=== PATIENT | female | born 1995 ===

== ENCOUNTER 2024-02-11 08:55 | Inpatient (IN) | payer BC, OTHER ==
[~2024-02-11] VITALS: Ht 162.6 cm; Wt 108.9 kg
[2024-02-11 09:53] LABS: HEMOGLOBIN 13.7 g/dL (12.0-18.0); MCH 29.1 (27-36); MCHC 33.3 g/dl (30-36); MCV 87.5 fl (81-99); RBC 4.69 M/ul (4.3-5.7); RDW 13.9 (10.5-15.0)
[2024-02-11] MEDS ORDERED: LACTATED RINGER'S 1,000 ML IV PRN (10:00)
[2024-02-11] MEDS ORDERED: CALCIUM CARBONATE 500 MG CHEW PO PRN (10:00)
[2024-02-11] MEDS ORDERED: MAGNESIUM HYDROXIDE/AL HYDROX 30 ML CUP PO PRN (10:00)
[2024-02-11] MEDS ORDERED: OXYTOCIN/DEXTROSE 5% 20 UNITS/100 ML BAG IV SCH (10:00)
[2024-02-11 10:18] LABS: AMPHETAMINES, URINE NEGATIVE (NEGATIVE); BARBITURATES, URINE NEGATIVE (NEGATIVE); BENZODIAZEPINE, URINE NEGATIVE (NEGATIVE); BUPRENORPHINE, URINE NEGATIVE (NEGATIVE); CANNABINOID, URINE NEGATIVE (NEGATIVE); COCAINE, URINE NEGATIVE (NEGATIVE); ECSTASY, URINE NEGATIVE (NEGATIVE); FENTANYL, URINE NEGATIVE (NEGATIVE); METHADONE, URINE NEGATIVE (NEGATIVE); OPIATES, URINE NEGATIVE (NEGATIVE); OXYCODONE, URINE NEGATIVE (NEGATIVE); PHENCYCLIDINE, URINE NEGATIVE (NEGATIVE)
[2024-02-11 10:25] LABS: ABO O; ANTIBODY SCREEN NEGATIVE; RH POSITIVE
[2024-02-11] MEDS ORDERED: IBUPROFEN 600 MG TAB PO PRN (13:00)
[2024-02-11] MEDS ORDERED: ACETAMINOPHEN 325 MG TAB PO PRN (13:00)
[2024-02-11] MEDS ORDERED: WITCH HAZEL/GLYCERIN 1 EA PAD TOP PRN (13:00)
[2024-02-11] MEDS ORDERED: HYDROCORTISONE ACETATE 25 MG SUPP PR PRN (13:00)
[2024-02-11] MEDS ORDERED: BENZOCAINE 60 ML AEROSOL TOP PRN (13:00)
[2024-02-11] MEDS ORDERED: MAGNESIUM HYDROXIDE 30 ML UDC PO PRN (13:00)
[2024-02-11] MEDS ORDERED: OXYTOCIN/0.9 % SODIUM CHLORIDE 500 ML IV SCH (13:00)
[2024-02-11] MEDS ORDERED: LIDOCAINE HCL 1% 30 ML SDV INJ ONE (14:03)
[2024-02-12 05:45] LABS: HEMOGLOBIN 11.4 g/dL (12.0-18.0); MCH 29.1 (27-36); MCHC 32.6 g/dl (30-36); MCV 89.3 fl (81-99); PLATELET COUNT 254 K/uL (140-440); RBC 3.92 M/ul (4.3-5.7); RDW 13.9 (10.5-15.0)
[2024-02-12 05:55] LABS: BANDS, MANUAL DIFF 8; LYMPHOCYTES, MANUAL DIFF 17; MONOCYTES, MANUAL DIFF 4; NEUTROPHILS, MANUAL DIFF 71
--- NOTE | 2024-02-12 08:28 | PR ---
[facility] [address] [place], [place] [address] Signed PP Progress Notes Datetime Report Generated by CPN: 02/12/2024 08:28 SUBJECTIVE: [id number] Pain: Within Normal Limits Nausea/Vomiting: Denies Flatus: Yes Vital Signs: [id number] Vital Signs: Reviewed; Within Normal Limits Cardiovascular: Normal Respiratory: Normal Abdomen/Uterus: Normal Lochia: Normal Vulva/Perineum: Not Done Breasts: Normal CVA Tenderness: Not Done Extremities: Normal Incision: Not Applicable Progress: Not Applicable IMPRESSION/PLAN/PROCEDURES: [id number] Impression: Normal Progression Plan: Continue Present Management; Discharge Procedures: None Progress Notes: Recovering well. No concerns. Bottlefeeding. Desires D/C home today. Signing Physician: Dina Sepulveda MD Copies: ~ *Electronically Signed* 02/12/24827 DINA SEPULVEDA MD PATIENT NAME: JULIO PALENCIA PROGRESS NOTE DATE OF : 93 PHYSICIAN: DINA SEPULVEDA MD RPT #: [id number] REPORT IS CONFIDENTIAL AND NOT TO BE RELEASED WITHOUT AUTHORIZATION
== END 2024-02-12 14:15 | disposition home or self-care (01) | DRG 807 ==
LOC: FBCO 08:55 → FBC 09:20
PROVIDERS: Obstetrics & Gynecology; ADMIT Obstetrics & Gynecology; ATTEND Obstetrics & Gynecology
PROC: 10E0XZZ Delivery of Products of Conception, External Approach (ICD-10-PCS; principal; 2024-02-11)
PROC: 0KQM0ZZ Repair Perineum Muscle, Open Approach (ICD-10-PCS; 2024-02-11)
DX: O24.420 Gestational diabetes mellitus in childbirth, diet controlled (principal); Z37.0 Single live birth; O70.1 Second degree perineal laceration during delivery; Z3A.37 37 weeks gestation of pregnancy
CPT/HCPCS: 36415; 80307; 85007; 85027; 85060; 86850; 86900; 86901; A9270; J2590; J7121